=== PATIENT | male | born 1975 | race Caucasian/White ===

== ENCOUNTER 2024-09-27 11:21 | Emergency (ER) | payer BC, OTHER ==
--- OUTSIDE RECORDS SUMMARY | 2024-09-27 11:52 | XMS REPORT | Continuity of Care Document ---
Author Name Unknown Address [address] [place] [address] Organization [facility] Address [address] [place] [address] Care Team Providers Care Slot Supervisor Name Role Phone Rob Rao Attending Clinician Unavailab le KNOW, DOES_NOT Admitting Clinician Unavailable Payers Payer Name Policy Type Policy Number Effective Date Expirati on Date Source Problems Condition Name Condition Details Condition Category Status Onset Date Resolution Date Last Treatment Date Treating Clinician Comments Source Postoperat ritesh state Postoperat ritesh State Problem Active 8-18 00:00: 00 [facility] Partial thickness rotator cuff tear Partial Thickness Rotator Cuff Tear Problem Active 07-31 00:00: 00 [facility] Instabilit y of right shoulder joint Instabilit y of Right Shoulder Joint Problem Active 23 00:00: 00 [facility] Sprain of ligament of right shoulder joint Sprain of Ligament of Right Shoulder Joint Problem Active 6-14 00:00: 00 [facility] Pain of right shoulder joint Pain of Right Shoulder Joint Problem Active 5-07 00:00: 00 [facility] Social History Smoking Status Start Date Stop Date Source Never Smoker [facility] Medications Ordered Medication Name Filled Medication Name Start Date Stop Date Current Medication? Ordering Clinician Indication Dosage Frequency Signature (SIG) Comments Components Source ondansetron 4 mg disintegrat ing tablet 1 po q 6 hrs prn nausea ondansetron 4 mg disintegrat ing tablet 1 po q 6 hrs prn nausea No ondansetro n 4 mg disintegra ting tablet 1 po q 6 hrs prn nausea [facility] oxycodone 5 mg tablet TAKE 1-2 TABLETS BY MOUTH EVERY 6 HOURS NEEDED FOR PAIN oxycodone 5 mg tablet TAKE 1-2 TABLETS BY MOUTH EVERY 6 HOURS NEEDED FOR PAIN No oxycodone 5 mg tablet TAKE 1-2 TABLETS BY MOUTH EVERY 6 HOURS NEEDED FOR PAIN [facility] tramadol 50 mg tablet 1 po q 6 hrs prn pain tramadol 50 mg tablet 1 po q 6 hrs prn pain No tramadol 50 mg tablet 1 po q 6 hrs prn pain [facility] Procedures Procedure Date / Time Performed Performing Clinicia n Source Elbow Surgery [facility] Hernia Repair [facility] Knee Surgery [facility] Shoulder Surgery [facility] Encounters Start Date/Time End Date/Time Encounter Type Admission Type Attending Clinicians Care Facility Care Department Encounter ID Source 2024-07-04 11:00:00 Inpatient Rob Christensen [facility] [id number] [facility] 2024-09-25 00:00:00 2024-09-25 00:00:00 Og Mejia MD: [address] [id number] , Ph. [facility] [place] [facility] [phone] [id number] [facility] 2024-07-31 00:00:00 2024-07-31 00:00:00 DAVE Jimenez: [address] [phone] , Ph. [facility] [place] [facility] [id number] [facility]
[2024-09-27 12:20] LABS: Absolute Lymphocytes (CBC) 1.0 K/uL (0.7-4.9); Hematocrit 41.5 % (39.6-49.0); Hemoglobin 14.1 g/dL (13.6-17.9); MCH 30.6 pg (27.0-35.0); MCHC 34.0 g/dL (32.0-36.0); MCV 90.2 fL (80-100); MPV 8.1 fL (7.6-11.3); Nucleated RBC Absolute Count 0.0 (0-0); Nucleated Red Blood Cells % 0.1 % (0-0); RBC Red Blood Cell Count 4.60 M/uL (4.33-5.43); White Blood Count 12.40 thou/uL (4.3-10.9)
[2024-09-27 12:29] LABS: PT Prothrombin Time 11.9 SECONDS (10-13.0); Protime INR 1.05
--- NOTE | 2024-09-27 12:32 | RAD REPORT ---
EXAMINATION: Head C Spine Mpr Wo Con CLINICAL INDICATION: Male, 49 years old. PAIN TECHNIQUE: Axial CT images from the skull base to the vertex without intravenous contrast. Axial CT i mages through the cervical spine were obtained without intravenous contrast. Sagittal and coronal reformatted images were created from the data set. Coronal and sagittal reformatted images were creat ed from the data set. One or more of the following dose reduction techniques were used: Automated exposure control, adjustment of the mA and/or kV according to patient size, and/or iterative reconstr uction. Unless otherwise specified, incidental findings do not require dedicated imaging follow-up. [id number]. COMPARISON: No prior exams FINDINGS: Head: INTRACRANIAL: No acute intracranial hemorrhage. No acute large vascular territory infarct. No hydroce phalus. No mass effect or midline shift. No significant white matter disease. VASCULATURE: No visualized abnormalities in the arteries or dural venous sinuses. SCALP/SKULL: No calvarial fracture identified. No acute soft tissue abnormality. SINUSES: The visualized paranasal sinuses are mostly clear. No significant mastoid fluid. Cervical spine: ALIGNMENT: The cervical spine has normal alignment without scoliosis or spondylolisthesis. BONE: Vertebral body heights are maintained. No aggressive osseous lesions. DEGENERATIVE: No significant focal degenerative changes. SOFT TISSUE: No significant abnormalities in the soft tissue of the neck. The visualized lung apices are clear. IMPRESSION: No acute intracranial abnormality. No acute fracture or traumatic malalignment of the cervical spine.
--- NOTE | 2024-09-27 12:36 | RAD REPORT ---
EXAMINATION: CTA CHEST PE CLINICAL INDICATION: Male, 49 years old. DYSPNEA TECHNIQUE: This examination was performed according to an angiographic protocol with 3D post-processi ng. This involves 3D reconstructions, MIPs, volume rendered images and/or shaded surface rendering. One or more of the following dose reduction techniques were used: Automated exposure control, adjustm ent of the mA and/or kV according to patient size, and/or iterative reconstruction. Unless otherwise specified, incidental findings do not require dedicated imaging follow-up. [id number]. COMPARISON: No priors. FINDINGS: LOWER NECK: Visualized thyroid gland and soft tissues are normal. MEDIASTINUM AND LYMPH NODES: No mediastinal mass or fluid collection. Normal size mediastinal, hilar, and axillary lymph nodes. THORACIC AORTA: Dilated aortic root measuring 4.7 cm. This is at the level of the sinuses Valsalva. T he ascending thoracic aorta measures up to 4 cm. PULMONARY ARTERIES: Caliber is within normal limits. HEART: Normal heart size. No coronary calcifications.No significant pericardial effusion. LUNGS AND AIRWAYS: No evidence of airspace or interstitial process. No suspicious and/or stable pulmo nary nodules. PLEURA: No pleural effusions. No pneumothorax. OSSEOUS STRUCTURES AND CHEST WALL: No fracture or suspicious osseous lesions. UPPER ABDOMEN: No acute abnormalities. IMPRESSION: Negative for pulmonary embolism. No other acute process identified in the chest. Ascending thoracic aortic aneurysm measuring 4 cm and dilated aortic root measuring 4.7 cm. Suggest e chocardiography.
--- NOTE | 2024-09-27 12:39 | RAD REPORT ---
EXAMINATION: Abdomen Pelvis W Contrast CLINICAL INDICATION: Male, 49 years old.ABD PAIN TECHNIQUE: CT abdomen and pelvis was performed, after the administration of IV contrast, [facility]. Axial, sagittal and coronal reconstructions were obtained. One or more of the following dose reduction techniques were used: Automated exposure control, adjustment of the mA and/o r kV according to patient size, and/or iterative reconstruction. Unless otherwise specified, incidental findings do not require dedicated imaging follow-up. [id number]. COMPARISON: No prior exams FINDINGS: LOWER CHEST: No acute process identified.No significant pericardial effusion. UPPER GI: No significant abnormality. LIVER: Benign appearing low density liver lesions. No suspicious mass. GALLBLADDER/BILE DUCTS: No biliary ductal dilatation.? PANCREAS: No mass, ductal dilation, or chucky-pancreatic fluid. SPLEEN: Unremarkable. ADRENALS: No adrenal masses. KIDNEYS AND URETERS: No hydronephrosis.No suspicious renal mass. ABDOMINAL AORTA AND OTHER VESSELS: Mild atherosclerotic changes. PERITONEUM: No abnormal free fluid. No free air. LYMPH NODES: No pathologic lymphadenopathy. ABDOMINAL WALL: Prior inguinal hernia repair. SMALL BOWEL/COLON: Small bowel has normal course and caliber. No colonic wall thickening or pericolon ic inflammatory changes.Normal appendix. URINARY BLADDER: Underdistended but grossly unremarkable. REPRODUCTIVE ORGANS: Mild prostatomegaly. MUSCULOSKELETAL: Moderate disc height loss L5-S1. No acute fracture. ADDITIONAL FINDINGS: None. IMPRESSION: No acute findings within the abdomen or pelvis. Incidental findings as noted above.
[2024-09-27 12:41] LABS: ALT/SGPT 28 U/L (16-61); AST/SGOT 16 U/L (15-37); Albumin 4.0 g/dL (3.4-5.0); Albumin/Globulin Ratio 1.1 (1.1-1.8); Alkaline Phosphatase 48 U/L (45-117); Anion Gap 8.6 mEq/L (5.0-15.0); BUN Blood Urea Nitrogen 18 mg/dL (7-18); Bilirubin Indirect, Calculated 0.2 mg/dL (0.2-0.8); Globulin 3.6 g/dL (2.3-3.5); Glucose Level 84 mg/dL (74-106); Lipase 45 U/L (13-75); Magnesium 2.3 mg/dL (1.6-2.4); NT PRO-BNP 52 pg/mL (<125); Potassium 3.6 mEq/L (3.5-5.1); Troponin High Sensitivity 14.0 pg/mL (<58.9)
[2024-09-27] MEDS ORDERED: NA CHLORIDE 0.9% 1,000 ML ONE (13:07)
--- NOTE | 2024-09-27 14:11 | RAD REPORT ---
EXAMINATION: ONE VIEW CHEST XR CLINICAL INDICATION: Male, 49 years old.,COUGH TECHNIQUE: Frontal chest projection is submitted. Examination is limited by patient positioning and t echnique. COMPARISON: No prior exam. FINDINGS: The lungs are well inflated and clear. No pneumothorax or sizable effusion. The heart is normal in s ize. Mediastinal contours are unremarkable. IMPRESSION: No acute intrathoracic abnormalities.
--- NOTE | 2024-09-27 14:23 | EDPHYS ---
Physician Documentation [facility] Name: Cristopher Becker Age: 49 yrs Sex: Male : 1975 Arrival Date: 09/27/2024 Time: 11:21 Bed 2 Private MD: ED Physician Santos Parker HPI: 09/27 14:17 This 49 yrs old Male presents to ER via Wheelchair with complaints of Fall altaf Injury, Syncope, post op 2 weeks, Headache. 14:17 Details of fall: The patient fell from an upright position, while standing. Onset: The altaf symptoms/episode began/occurred just prior to arrival. 14:18 The patient complains of pain to the forehead. The patient describes the headache as altaf aching. Onset: The symptoms/episode began/occurred just prior to arrival. Associated injuries: The patient sustained injury to the head, contusion, hematoma. The patient has experienced near-syncope, almost passed out, felt dizzy, felt faint. Severity of symptoms: At its worst the pain was mild, in the emergency department the pain is unchanged. Historical: - Allergies: 11:35 No Known Allergies; ll1 - PMHx: 11:35 Hypertensive disorder; ll1 - PSHx: 11:35 Labrum and bicep reattached-R shoulder; knee, rotator cuffs; ll1 - Immunization history:: Adult Immunizations up to date. - Infectious Disease History:: Denies. - Social history:: Smoking status: Patient/guardian denies using tobacco. - Family history:: not pertinent. ROS: 14:18 Constitutional: Negative for fever, chills, and weight loss, Eyes: Negative for injury, altaf pain, redness, and discharge, ENT: Negative for injury, pain, and discharge, Neck: Negative for injury, pain, and swelling, Cardiovascular: Negative for chest pain, palpitations, and edema, Respiratory: Negative for shortness of breath, cough, wheezing, and pleuritic chest pain, Abdomen/GI: Negative for abdominal pain, nausea, vomiting, diarrhea, and constipation, Back: Negative for injury and pain, : Negative for injury, bleeding, discharge, and swelling, MS/Extremity: Negative for injury and deformity, Skin: Negative for injury, rash, and discoloration, Psych: Negative for depression, anxiety, suicide ideation, homicidal ideation, and hallucinations, Allergy/Immunology: Negative for hives, rash, and allergies, Endocrine: Negative for neck swelling, polydipsia, polyuria, polyphagia, and marked weight changes, Hematologic/Lymphatic: Negative for swollen nodes, abnormal bleeding, and unusual bruising, 14:18 Neuro: Positive for headache, near syncope, weakness, Exam: 14:18 Constitutional: This is a well developed, well nourished patient who is awake, alert, altaf and in no acute distress. Eyes: Pupils equal round and reactive to light, extra-ocular motions intact. Lids and lashes normal. Conjunctiva and sclera are non-icteric and not injected. Cornea within normal limits. Periorbital areas with no swelling, redness, or edema. ENT: Nares patent. No nasal discharge, no septal abnormalities noted. Tympanic membranes are normal and external auditory canals are clear. Oropharynx with no redness, swelling, or masses, exudates, or evidence of obstruction, uvula midline. Mucous membranes moist. Neck: Trachea midline, no thyromegaly or masses palpated, and no cervical lymphadenopathy. Supple, full range of motion without nuchal rigidity, or vertebral point tenderness. No Meningismus. Chest/axilla: Normal chest wall appearance and motion. Nontender with no deformity. No lesions are appreciated. Cardiovascular: Regular rate and rhythm with a normal S1 and S2. No gallops, murmurs, or rubs. Normal PMI, no JVD. No pulse deficits. Respiratory: Lungs have equal breath sounds bilaterally, clear to auscultation and percussion. No rales, rhonchi or wheezes noted. No increased work of breathing, no retractions or nasal flaring. Abdomen/GI: Soft, non-tender, with normal bowel sounds. No distension or tympany. No guarding or rebound. No evidence of tenderness throughout. Back: No spinal tenderness. No costovertebral tenderness. Full range of motion. Male : Normal genitalia with no discharge or lesions. Skin: Warm, dry with normal turgor. Normal color with no rashes, no lesions, and no evidence of cellulitis. MS/ Extremity: Pulses equal, no cyanosis. Neurovascular intact. Full, normal range of motion., bilateral aka Neuro: Awake and alert, GCS 15, oriented to person, place, time, and situation. Cranial nerves II-XII grossly intact. Motor strength 5/5 in all extremities. Sensory grossly intact. Cerebellar exam normal. Normal gait. Psych: Awake, alert, with orientation to person, place and time. Behavior, mood, and affect are within normal limits. 14:18 ECG was reviewed by the Attending Physician. 14:18 Musculoskeletal/extremity: ROM: no acute changes, Circulation is intact in all extremities. Sensation intact. Compartment Syndrome exam of affected extremity: is normal. DVT Exam: No signs of deep vein thrombosis. no pain, no swelling, no tenderness, negative Homans' sign noted on exam, no appreciated bluish discoloration, no erythema, no increased warmth, Vital Signs: 11:36 BP 160 / 96; Pulse 80; Resp 16; Temp 97.5; Pulse Ox 98% ; Weight 86.18 kg; Height 5 ft. ll1 9 in. ; Pain 1/10; 13:59 BP 158 / 88; Pulse 84; Resp 16; Pulse Ox 100% ; bp 14:22 BP 156 / 92; Pulse 86; Resp 18; Temp 98.3; Pulse Ox 98% on R/A; Pain 0/10; ab3 11:36 Body Mass Index 28.06 (86.18 kg, 175.26 cm) ll1 11:36 Pain Scale: Adult ll1 14:22 Pain Scale: Adult ab3 [place] Coma Score: 14:18 Eye Response: spontaneous(4). Motor Response: obeys commands(6). Verbal Response: altaf oriented(5). Total: 15. 14:20 Eye Response: spontaneous(4). Motor Response: obeys commands(6). Verbal Response: altaf oriented(5). Total: 15. MDM: 11:49 Medical Screening Exam initiated altaf 14:20 Differential diagnosis: cervical epidural bleed, cervical perispinal abcess, cluster altaf headache, epidural hematoma, intracerebral hemorrhage, meningitis, meningoencephalitis, migraine, neoplasm, subarachnoid bleed, subdural hematoma, temporal arteritis, tension headache, traumatic injuries, trigeminal neuralgia, uremia, vasomotor headache. Differential diagnosis: abrasion, closed head injury, contusion, fracture, laceration, multiple trauma, sprain, strain, aortic aneurysm, cardiac arrhythmia, cerebrovascular accident, emotional response, GI bleed, idiopathic syncope, pseudo seizure, seizure, sepsis, transient ischemic attack, vasovagal episode. Data reviewed: vital signs, nurses notes, lab test result(s), EKG, radiologic studies, CT scan, plain films. Consideration of Admission/Observation Escalation of care including admission/observation considered. I considered the following discharge prescriptions or medication management in the emergency department Medications were administered in the Emergency Department. See MAR. Independent interpretation of the following test(s) in the Emergency Department EKG: See my EKG interpretation above. Test considered but Not performed: Ultrasound NO 2 D ECHO. Historians other than the Patient: Spouse/Significant Other: AND PT WELL INFORMED. 09/27 11:51 Order name: Basic Metabolic Panel; Complete Time: 13:53 [facility] 09/27 11:51 Order name: CBC with Diff; Complete Time: 13:53 [facility] 09/27 11:51 Order name: LFT's; Complete Time: 13:53 [facility] 09/27 11:51 Order name: Magnesium; Complete Time: 13:53 [facility] 09/27 11:51 Order name: NT PRO-BNP; Complete Time: 13:53 [facility] 09/27 11:51 Order name: PT-INR; Complete Time: 13:53 [facility] 09/27 11:51 Order name: Troponin HS; Complete Time: 13:53 [facility] 09/27 11:51 Order name: Lipase; Complete Time: 13:53 [facility] 09/27 11:51 Order name: XRAY Chest (1 view); Complete Time: 14:23 [facility] 09/27 11:51 Order name: CT Head C Spine; Complete Time: 13:53 [facility] 09/27 11:51 Order name: Chest For PE Angio CT; Complete Time: 13:53 [facility] 09/27 11:51 Order name: CT Abd/Pelvis - IV Contrast Only; Complete Time: 13:53 [facility] 09/27 11:51 Order name: Cardiac monitoring; Complete Time: 13:06 [facility] 09/27 11:51 Order name: EKG - Nurse/Tech; Complete Time: 13:06 [facility] 09/27 11:51 Order name: IV Saline Lock; Complete Time: 13: [facility] 09/27 11:51 Order name: Labs collected and sent; Complete Time: 13:05 [facility] 09/27 11:51 Order name: O2 Per Protocol; Complete Time: 13:05 [facility] 09/27 11:51 Order name: O2 Sat Monitoring; Complete Time: 13:05 [facility] EC:18 Rate is 86 beats/min. Rhythm is regular. QRS [place] is Normal. [place] interval is normal. QRS altaf interval is normal. QT interval is normal. No Q waves. T waves are Normal. No ST changes noted. Clinical impression: Normal ECG and No evidence of ischemia. Interpreted by me. Reviewed by me. 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 altaf Followup: altaf - With: Private Physician - When: 2 - 3 days - Reason: Recheck today's complaints, Continuance of care, Re-evaluation by your physician Discharge Instructions: - Discharge Summary Sheet altaf - Head Injury, Adult altaf - Near-Syncope altaf - Near-Syncope, [id number] altaf - Head Injury, Adult, [id number] altaf Forms: - Medication Reconciliation Form altaf - Antibiotic Education altaf - Prescription Opioid Use altaf - Patient Portal Instructions altaf - Leadership Thank You Letter altaf Signatures: Dispatcher [employer] EDSantos Hallman MD MD cha Peltier, Brian RN RN bp Mark Chopra RN RN ll1 Sakshi Berg RN RN ab3 Corrections: (The following items were deleted from the chart) 11:52 11:52 BASIC METABOLIC PANEL+C.LAB.BRZ ordered. EDMS EDMS 11:52 11:52 CBC+H.LAB.BRZ ordered. EDMS EDMS 11:52 11:52 HEPATIC FUNCTION+C.LAB.BRZ ordered. EDMS EDMS 11:52 11:52 MAGNESIUM+C.LAB.BRZ ordered. EDPA EDMS 11:52 11:52 PROBNP+C.LAB.BRZ ordered. EDPA EDMS 11:52 11:52 PROTIME (+INR)+COAG.LAB.BRZ ordered. EDMS EDMS : 11:52 Troponin High Sensitivity+C.LAB.BRZ ordered. EDMS EDMS 11:52 LIPASE+C.LAB.BRZ ordered. EDMS EDMS : 11:52 UA Rfx Yaakov Cult if indicated+U.LAB.BRZ ordered. EDMS EDMS : 11:52 Chest Single View+RAD.RAD.BRZ ordered. EDMS EDMS 11:52 Head C Spine MPR Wo Con+CT.RAD.BRZ ordered. EDMS EDMS : 11:52 Chest For PE Angio+CT.RAD.BRZ ordered. EDMS EDMS : 11:53 Abdomen Pelvis W Con+CT.RAD.BRZ ordered. EDMS EDMS
--- NOTE | 2024-09-27 14:23 | ER ---
Nurse's Notes [facility] Name: Cristopher Becker Age: 49 yrs Sex: Male : 1975 Arrival Date: 09/27/2024 Time: 11:21 Bed 2 Private MD: Diagnosis: Syncope Near;Unspecified injury of head, initial encounter;Fall on same level, unspecified;alf (current) use of anticoagulants Presentation: 09/27 11:36 Chief complaint: Patient states: Worked out and got over heated. Went inside to get a ll1 drink, then passed out. Awoke on the floor, got himself up, then passed out again. Sweating, KEITA since. + KEITA with hematoma. Coronavirus screen: Client denies travel out of the [place] in the last 14 days. At this time, the client does not indicate any symptoms associated with coronavirus-19. Ebola Screen: Patient denies travel to an Ebola-affected area in the 21 days before illness onset. Initial Sepsis Screen: Does the patient meet any 2 criteria? No. Patient's initial sepsis screen is negative. Does the patient have a suspected source of infection? No. Patient's initial sepsis screen is negative. Risk Assessment: Do you want to hurt yourself or someone else? Patient reports no desire to harm self or others. Onset of symptoms was September 27, 2024. 11:36 Method Of Arrival: Wheelchair ll1 11:36 Acuity: ALESHIA 3 ll1 Triage Assessment: 11:36 General: Appears in no apparent distress. Behavior is calm, cooperative, appropriate ll1 for age. Pain: Complains of pain in scalp Pain currently is 1 out of 10 on a pain scale. Quality of pain is described as aching. Neuro: Reports dizziness, headache a syncopal episode weakness. Historical: - Allergies: 11:35 No Known Allergies; ll1 - PMHx: 11:35 Hypertensive disorder; ll1 - PSHx: 11:35 Labrum and bicep reattached-R shoulder; knee, rotator cuffs; ll1 - Immunization history:: Adult Immunizations up to date. - Infectious Disease History:: Denies. - Social history:: Smoking status: Patient/guardian denies using tobacco. - Family history:: not pertinent. Screenin:[facility] ED Fall Risk Assessment (Adult) History of falling in the last 3 months, bp including since admission Yes- single mechanical fall (1 pt) Confusion or Disorientation No (0 pts) Intoxicated or Sedated No (0 pts) Impaired Gait No (0 pts) Mobility Assist Device Used No (0 pt) Altered Elimination No (0 pt) Score/Fall Risk Level 0 - 2 = Low Risk Oriented to surroundings. Abuse screen: Denies threats or abuse. Denies injuries from another. Nutritional screening: No deficits noted. Tuberculosis screening: No symptoms or risk factors identified. Assessment: 12:43 Reassessment: Patient and/or family updated on plan of care and expected duration. Pain ll1 level reassessed. Vital Signs: 11:36 BP 160 / 96; Pulse 80; Resp 16; Temp 97.5; Pulse Ox 98% ; Weight 86.18 kg; Height 5 ft. ll1 9 in. ; Pain 1/10; 13:59 BP 158 / 88; Pulse 84; Resp 16; Pulse Ox 100% ; bp 14:22 BP 156 / 92; Pulse 86; Resp 18; Temp 98.3; Pulse Ox 98% on R/A; Pain 0/10; ab3 11:36 Body Mass Index 28.06 (86.18 kg, 175.26 cm) ll1 11:36 Pain Scale: Adult ll1 14:22 Pain Scale: Adult ab3 [place] Coma Score: 14:18 Eye Response: spontaneous(4). Motor Response: obeys commands(6). Verbal Response: altaf oriented(5). Total: 15. 14:20 Eye Response: spontaneous(4). Motor Response: obeys commands(6). Verbal Response: altaf oriented(5). Total: 15. ED Course: 11:23 Patient arrived in ED. im 11:35 Arm band placed on. ll1 11:38 Triage completed. ll1 11:49 Santos Parker MD is Attending Physician. altaf 12:11 CT Head C Spine In Process Unspecified. EDMS 12:11 Chest For PE Angio CT In Process Unspecified. EDMS 12:11 CT Abd/Pelvis - IV Contrast Only In Process Unspecified. EDMS 12:35 Provided Education on: POC and call light-use. ab3 12:35 Inserted saline lock: 20 gauge in left antecubital area, using aseptic technique. Blood dd2 collected. Flushed with 10 mL NS. 12:35 No provider procedures requiring assistance completed. ab3 12:43 Patient placed in an exam room, on a stretcher. ll1 12:43 Warm blanket given. Pillow given. ll1 12:50 Sonny Ziegler, RN is Primary Nurse. bp 12:54 XRAY Chest (1 view) In Process Unspecified. EDMS 13:59 Patient has correct armband on for positive identification. bp 14:28 IV discontinued, intact, bleeding controlled, No redness/swelling at site. Pressure ab3 dressing applied. Administered Medications: 13:09 Drug: NS 0.9% IV 1000 ml IV at 1000 ml once; to be given as a bolus over 60 minutes bp Route: IV; Rate: 1000 ml; Site: left antecubital; 14:28 Follow up: IV Status: Completed infusion; IV Intake: 1000ml ab3 14:28 Follow up: IV Status: Completed infusion; IV Intake: 1000ml ab3 Medication: 14:27 VIS not applicable for this client. ab3 Intake: 14:28 IV: 1000ml; Total: 1000ml. ab3 14:28 IV: 1000ml; Total: 2000ml. ab3 Outcome: 14:23 Discharge ordered by . altaf 14:27 Condition: improved ab3 14:29 Discharge instructions given to patient, significant other, Instructed on discharge ab3 instructions, follow up and referral plans. medication usage, safety practices, 14:34 Discharged to home via wheelchair, with significant other, ab3 14:37 Patient left the ED. ab3 Signatures: Dispatcher [employer] EDPA Santos Parker MD MD cha Peltier, Brian, RN RN Mark Kong RN RN ll1 Mary Beth Dinh Allie, RN RN ab3 ELIZABETH ANTUNEZ, RN RN dd2
[2024-09-27 20:49] VITALS: BP 156/92; TEMP 98.3; O2SAT 98
== END 2024-09-27 14:37 | disposition home or self-care (01) ==
LOC: ER 11:21
DX: S09.90XA Unspecified injury of head, initial encounter (principal); R55 Syncope and collapse; W18.30XA Fall on same level, unspecified, initial encounter; I10 Essential (primary) hypertension; Z79.01 Long term (current) use of anticoagulants
CPT/HCPCS: 93005; 85025; 80048; 36415; 83735; 85610; 80076; 84484; 83690; 83880; 70450; 72125; 71275; 74177; 71045; 96360; 99284; Q9967; J7030